=== PATIENT | female | born 1945 | race Caucasian/White ===

== ENCOUNTER → 2017-09-23 | Outpatient (CLI) | payer MEDICARE ==
[~2017-09-23] MED LIST: ROSU5TAB PO; VIT1TABL6 PO
== END | disposition home or self-care (01) ==
LOC: SHCH 10:16
PROVIDERS: ATTEND Internal Medicine Cardiovascular Disease
DX: I48.1 Persistent atrial fibrillation (principal)
CPT/HCPCS: 93306

== ENCOUNTER 2018-10-20 17:41 | Inpatient (IN) | payer MEDICARE ==
[2018-10-20] VITALS (14 sets, daily range): BP systolic 118–209; BP diastolic 49–96
[~2018-10-20] VITALS: Ht 162.6 cm; Wt 73.1 kg
[2018-10-20] MEDS ORDERED: ONDANSETRON HCL 4 MG/2 ML VIAL ONE (17:55)
[2018-10-20] MEDS ORDERED: PHYTONADIONE 10 MG/1 ML AMP ONE (18:27)
[2018-10-20 18:48] LABS: BASOPHILS % (AUTO) 0.5 % (0.0-5.0); EOSINOPHILS % (AUTO) 0.4 % (0.0-8.0); HEMATOCRIT 33.9 % (36-48); LYMPHOCYTES % (AUTO) 10.2 % (21.0-51.0); MEAN CORPUSCULAR HEMOGLOBIN 29.4 pg (27.0-33.0); MEAN CORPUSCULAR HGB CONC 33.2 g/dL (32.0-36.0); MEAN CORPUSCULAR VOLUME 88.5 fL (79-99); MONOCYTES % (AUTO) 6.6 % (3.0-13.0); NEUTROPHILS % (AUTO) 82.3 % (40.0-77.0); PLATELET COUNT (AUTO) 134 K/uL (130-400); RED BLOOD CELL COUNT(AUTO) 3.84 MIL/uL (4.00-5.50); RED CELL DISTRIBUTION WIDTH 14.1 % (11.0-15.5); WHITE BLOOD COUNT (AUTO) 13.6 K/uL (4.8-10.8)
[2018-10-20] MEDS ORDERED: LEVETIRACETAM 500 MG/5 ML SD VIAL IV ONE (18:57)
[2018-10-20 19:02] LABS: INR 1.1 (0.85-1.15); PROTHROMBIN TIME 11.5 SEC (9.6-11.6)
[2018-10-20 19:03] LABS: ALBUMIN 3.8 g/dL (3.5-5.0); BILIRUBIN,TOTAL 0.7 mg/dL (0.2-1.0); TOTAL PROTEIN, SERUM 6.7 g/dL (6.0-8.3)
--- NOTE | 2018-10-20 19:35 | NUR ---
Dr. Oseguera notified Dr. Oseguera notified of patient's current deteriorating neurological condition. vitals signs, and current diagnostic/CT result. Orders received readback and entered into system. See EMR.
[2018-10-20] MEDS ORDERED: MANNITOL 20% 500ML BAG 500 ML IV STA (19:48)
--- NOTE | 2018-10-20 19:50 | NUR ---
Dr. Joo gavin
--- NOTE | 2018-10-20 19:55 | NUR ---
Dr. Ge here to see pt at bedside. Dr. Ge here to see. Pt at bedside. Updated on patient current condition and deteriorating neurologic condition. Orders received and entered into system. Dr. Oseguera placed on phone to speak [email or web address]. Dr. Oseguera spoke personally to [email or web address]. All orders received and entered into system.
[2018-10-20] MEDS ORDERED: NICARDIPINE HCL 100 MG in DEXTROSE 5%-WATER 60 ML IV SCH (20:00)
[2018-10-20] MEDS ORDERED: MANNITOL 25% 50ML VIAL IV SCH (21:00)
--- NOTE | 2018-10-20 22:00 | NUR ---
Dr. Oseguera notification Notified of patient going into afib RVR. Orders received readback and entered into system.
[2018-10-20] MEDS: ONDANSETRON HCL 4 MG/2 ML VIAL IVP PRN (22:08)
[2018-10-20 22:34] LABS: APPEARANCE,URINE Clear (CLEAR); BILIRUBIN,URINE Negative (NEGATIVE); COLOR,URINE Yellow (YELLOW); GLUCOSE, URINE (UA) Negative (NEGATIVE); KETONES,URINE >=80 mg/dL (NEGATIVE); LEUKOCYTE ESTERASE ,URINE Negative (NEGATIVE); NITRATE,URINE Negative (NEGATIVE); OCCULT BLOOD,URINE Negative (NEGATIVE); PH,URINE 7.5 (5.0-8.0); PROTEIN,URINE Negative (NEGATIVE); UROBILINOGEN,URINE 0.2 mg/dL (0.2-1.0)
[2018-10-20] MEDS ORDERED: AMIODARONE HCL 150 MG in DEXTROSE 5%-WATER 100 ML IV SCH (23:15)
[2018-10-20] MEDS ORDERED: AMIODARONE HCL 900 MG in DEXTROSE 5%-WATER 500 ML IV SCH (23:15)
[2018-10-20] MEDS ORDERED: AMIODARONE HCL 900MG/18ML IV ONE (23:19)
[2018-10-20] MEDS ORDERED: AMIODARONE HCL 50 MG/ML 3 ML VIAL ONE (23:20)
[2018-10-20] MEDS ORDERED: DEXTROSE 5%-WATER 100 ML IV ONE (23:21)
[2018-10-20] MEDS ORDERED: DEXTROSE 5%-WATER 500 ML IV ONE (23:22)
[2018-10-21] VITALS (33 sets, daily range): BP systolic 65–155; BP diastolic 29–98
[2018-10-21 03:47] LABS: BASOPHILS % (AUTO) 0.2 % (0.0-5.0); LYMPHOCYTES % (AUTO) 4.2 % (21.0-51.0); MEAN CORPUSCULAR HEMOGLOBIN 30.1 pg (27.0-33.0); MEAN CORPUSCULAR HGB CONC 34.3 g/dL (32.0-36.0); MEAN CORPUSCULAR VOLUME 87.7 fL (79-99); MONOCYTES % (AUTO) 6.9 % (3.0-13.0); NEUTROPHILS % (AUTO) 88.7 % (40.0-77.0); PLATELET COUNT (AUTO) 121 K/uL (130-400); RED BLOOD CELL COUNT(AUTO) 3.42 MIL/uL (4.00-5.50); RED CELL DISTRIBUTION WIDTH 13.6 % (11.0-15.5); WHITE BLOOD COUNT (AUTO) 12.5 K/uL (4.8-10.8)
[2018-10-21] MEDS ORDERED: ACETAMINOPHEN 650 MG SUPPOSITORY RC ONE ×2 (03:58→08:27)
[2018-10-21] MEDS ORDERED: MANNITOL 20% 500ML BAG 500 ML IV SCH (04:00)
--- NOTE | 2018-10-21 04:00 | NUR ---
Dr. Oseguera Notified Dr. Oseguera notified of no serum-osmo result able to get on time to to send out. Orders received to go ahead and give the Mannitol dose scheduled at this time.
[2018-10-21 04:02] LABS: INR 1.05 (0.85-1.15); PARTIAL THROMBOPLASTIN TIME 24.6 SEC (26.3-35.5)
[2018-10-21 04:17] LABS: ALBUMIN 4.1 g/dL (3.5-5.0); BILIRUBIN,TOTAL 0.9 mg/dL (0.2-1.0); MAGNESIUM 1.6 mg/dL (1.80-2.40); POTASSIUM 3.6 mmol/L (3.5-5.1); TOTAL PROTEIN, SERUM 7.7 g/dL (6.0-8.3)
[2018-10-21] MEDS ORDERED: POTASSIUM CHLORIDE 20MEQ/100ML 100 ML IV ONE (04:56)
[2018-10-21] MEDS ORDERED: MAGNESIUM 2GM PREMIX 50ML 50 ML IV ONE (04:56)
[2018-10-21] MEDS: SODIUM CHLORIDE 0.9% 1000ML 1,000 ML IV SCH ×2 (05:13→09:50)
[2018-10-21] MEDS: MANNITOL 25% 50ML VIAL IV SCH ×3 (05:20→21:00)
[2018-10-21] MEDS ORDERED: LIDOCAINE HCL-MPF 1% 2ML VIAL IVP PRN (05:45)
[2018-10-21] MEDS ORDERED: MAGNESIUM 2GM PREMIX 50ML 50 ML IV PRN (05:45)
[2018-10-21] MEDS: LEVETIRACETAM 500 MG in SODIUM CHLORIDE 0.9% 100 ML IV SCH ×2 (07:02→18:40)
--- NOTE | 2018-10-21 08:00 | NUR ---
PT TAKEN TO CT. TOLERATED WELL.
[2018-10-21] MEDS: ONDANSETRON HCL 4 MG/2 ML VIAL IVP PRN (08:32)
--- NOTE | 2018-10-21 10:00 | NUR ---
DR. GUNTER CALLED AND NOTIFIED OF CT RESULTS, PT NAUSEA AND FEVER. NEW ORDERS RECEIVED AND NOTED. PT STARTED ON 3 % SALINE ORDERED.
[2018-10-21] MEDS: SODIUM CHLORIDE 3% 500 ML IV SCH (11:21)
--- NOTE | 2018-10-21 11:30 | NUR ---
Ying HORVATH, REGISTERED PHARMACY TECHNICIAN AT BEDSIDE. PLANO F CARE DISCUSSED WITH AT BEDSIDE. ALL QUESTIONS ANSWERED.
[2018-10-21 12:37] LABS: POTASSIUM 3.7 mmol/L (3.5-5.1)
--- NOTE | 2018-10-21 13:01 | NUR ---
DC PLAN VISITED WITH PATIENT. PATIENT LIVES WITH SPOUSE. INDEPENDENT ABLE TO PERFORM ADL'S. PATIENT HAS NO SERVICES OR DME'S. PATIENT FEELS SAFE TO RETURN HOME. Addendum: 10/21/18 at 1302 by BEHZAD MEJÍA RN CM Amended: Links added.
[2018-10-21] MEDS: ACETAMINOPHEN 650 MG SUPPOSITORY RC PRN ×2 (16:34→23:42)
[2018-10-21 16:55] LABS: POTASSIUM 3.8 mmol/L (3.5-5.1)
[2018-10-21 21:22] LABS: CREATININE 1.1 mg/dL (0.5-1.5); POTASSIUM 3.7 mmol/L (3.5-5.1)
[2018-10-22] VITALS (35 sets, daily range): BP systolic 112–161; BP diastolic 67–100
[2018-10-22 01:33] LABS: CREATININE 1.1 mg/dL (0.5-1.5); POTASSIUM 3.5 mmol/L (3.5-5.1)
[2018-10-22] MEDS: SODIUM CHLORIDE 3% 500 ML IV SCH ×2 (01:54→14:23)
[2018-10-22] MEDS ORDERED: IPRATROPIUM/ALBUTEROL SULFATE 3 ML SOLUTION IH ONE (02:12)
[2018-10-22] MEDS ORDERED: IPRATROPIUM 0.5 MG/2.5 ML INH IH ONE (02:13)
[2018-10-22] MEDS ORDERED: AMIODARONE HCL 900MG/18ML IV ONE (03:49)
[2018-10-22] MEDS ORDERED: SODIUM CHLORIDE 0.9% 500ML 500 ML IV ONE (03:50)
[2018-10-22 04:45] LABS: POTASSIUM 3.5 mmol/L (3.5-5.1)
[2018-10-22] MEDS: MANNITOL 25% 50ML VIAL IV SCH ×3 (05:00→21:00)
--- NOTE | 2018-10-22 05:00 | NUR ---
Sagar KAUR NOTIFIED OF PT INCREASE IN HR TO AFIVB RVR 150-160. ALSO INFORMED OF PT DESATURATION. PT PLACED ON 40% VENTI MASK AND LASIX ORDERED BID. ORDERS CARRIED OUT.
[2018-10-22] MEDS ORDERED: FUROSEMIDE 10 MG/ML 2ML VIAL ONE (05:59)
[2018-10-22] MEDS: FUROSEMIDE 10 MG/ML 2ML VIAL IV SCH ×2 (06:00→19:28)
[2018-10-22] MEDS: IPRATROPIUM 0.5 MG/2.5 ML INH IH PRN ×4 (07:01→23:16)
[2018-10-22] MEDS: LEVETIRACETAM 500 MG in SODIUM CHLORIDE 0.9% 100 ML IV SCH ×2 (07:13→20:35)
--- NOTE | 2018-10-22 08:00 | NUR ---
NEURO: PUPILS EQUAL - STICKS OUT TONGUE - MIDLINE. HOLDS BOTH ARMS UP FOR COUNT OF 5 - DOES NOT RESPONDS TO OTHER AREAS OF NIH SCALE - DROWSY.
[2018-10-22 08:25] LABS: POTASSIUM 3.3 mmol/L (3.5-5.1)
[2018-10-22] MEDS ORDERED: ENOXAPARIN SODIUM 60 MG/0.6 ML SQ SCH (09:00)
[2018-10-22] MEDS: DILTIAZEM 125MG+100 ML NS 125 ML IV PRN ×2 (11:40→19:42)
--- NOTE | 2018-10-22 11:40 | NUR ---
CARDIZEM STARTED AT 15 MG/HR PER MD FOR HR AFIB 130 - 150 - AMINODARONE STOPPED.
[2018-10-22] MEDS: POTASSIUM CHLORIDE 20MEQ/100ML 100 ML IV PRN ×4 (12:15→22:08)
[2018-10-22] MEDS: DIGOXIN 250 MCG/ML 2ML AMP IV SCH ×3 (12:15→22:09)
--- NOTE | 2018-10-22 12:15 | NUR ---
K+ REPLACEMENT - SEE EMAR
[2018-10-22 12:55] LABS: POTASSIUM 3.1 mmol/L (3.5-5.1)
--- NOTE | 2018-10-22 14:08 | NUR ---
DR. LEVIN NOTIFIED OF PT LETHARGY AND SHALLOW RESP IN THE 20'S - SEE ORDERS FOR ABGS AND RT NOTIFIED.
[2018-10-22] MEDS ORDERED: DIGOXIN 250 MCG/ML 2ML AMP IV ONE (14:15)
[2018-10-22 14:23] LABS: ABG BASE EXCESS -2.6 mmol/L (-2.0-3.0); ABG HCO3 19.8 mmol/L (21.0-28.0); ABG OXYGEN SATURATION 93.3 % (95.0-99.0); ABG PCO2 29 mmHg (32-45)
--- NOTE | 2018-10-22 14:25 | NUR ---
NOTIFIED OF ABGS - SEE ORDERS
[2018-10-22] MEDS ORDERED: FUROSEMIDE 10 MG/ML 2ML VIAL IV SCH (14:30)
--- NOTE | 2018-10-22 14:30 | NUR ---
RT NOTIFIED OF BIPAP ORDERS.
--- NOTE | 2018-10-22 15:00 | NUR ---
K+ REPLACEMENT SEE EMAR.
--- NOTE | 2018-10-22 16:30 | NUR ---
MORE ALERT - ABLE TO RESPOND TO QUESTIONS WITH HEAD NOD - WEAK AND FOLLOWS SOME COMMANDS - KNOWS DAUGHTER IN LAW AT [employer].
--- NOTE | 2018-10-22 16:30 | NUR ---
LASIX 20MG IVP NOW PER ORDER FROM DR. APARICIO.
--- NOTE | 2018-10-22 20:00 | NUR ---
ASSESSMENT AWAKE FOLLOWS COMMANDS. REMAINS ON BIPAP. REMAINS ON CARDIZEM DRIP. ASSESSMENT COMPLETED SEE FLOW SHEET. ENCOURAGED TO CALL FOR WANTS OR NEEDS. Addendum: 10/22/18 at 2133 by AMBER GORDON RN RN Amended: Links added.
[2018-10-22 20:34] LABS: POTASSIUM 3.1 mmol/L (3.5-5.1)
[2018-10-23] VITALS (26 sets, daily range): BP systolic 98–127; BP diastolic 51–77
[2018-10-23 02:27] LABS: POTASSIUM 3.2 mmol/L (3.5-5.1)
[2018-10-23 02:28] LABS: CREATININE 0.9 mg/dL (0.5-1.5)
[2018-10-23] MEDS: DIGOXIN 250 MCG/ML 2ML AMP IV SCH ×2 (03:08→08:09)
[2018-10-23] MEDS: POTASSIUM CHLORIDE 20MEQ/100ML 100 ML IV PRN ×4 (03:08→18:31)
[2018-10-23 04:38] LABS: HEMATOCRIT 29.5 % (36-48); MEAN CORPUSCULAR HEMOGLOBIN 29.9 pg (27.0-33.0); MEAN CORPUSCULAR HGB CONC 33.2 g/dL (32.0-36.0); MEAN CORPUSCULAR VOLUME 89.9 fL (79-99); PLATELET COUNT (AUTO) 118 K/uL (130-400); RED BLOOD CELL COUNT(AUTO) 3.28 MIL/uL (4.00-5.50); WHITE BLOOD COUNT (AUTO) 18.2 K/uL (4.8-10.8)
[2018-10-23 04:51] LABS: CREATININE 0.9 mg/dL (0.5-1.5); MAGNESIUM 2.3 mg/dL (1.80-2.40); POTASSIUM 3.7 mmol/L (3.5-5.1)
[2018-10-23] MEDS: FUROSEMIDE 10 MG/ML 2ML VIAL IV SCH ×2 (05:18→18:30)
[2018-10-23] MEDS: LEVETIRACETAM 500 MG in SODIUM CHLORIDE 0.9% 100 ML IV SCH ×2 (06:40→18:55)
[2018-10-23] MEDS: MANNITOL 25% 50ML VIAL IV SCH ×2 (07:35→13:00)
--- NOTE | 2018-10-23 08:00 | NUR ---
ASSESS: NIH = 1 - NOT ABLE TO SEE UPPER LEFT LATERAL PERIPHERY; KNOWS SPOUSE NAME AND PLACE - ORIENTED TO TIME. SLOW RESPONSE TO QUESTIONS AND COMMANDS BUT RESPONSE APPROPRIATE.
[2018-10-23] MEDS: DILTIAZEM 125MG+100 ML NS 125 ML IV PRN (08:10)
[2018-10-23 08:54] LABS: POTASSIUM 3.3 mmol/L (3.5-5.1)
[2018-10-23] MEDS ORDERED: FAMOTIDINE/PF 20 MG/2 ML VIAL IV ONE (10:09)
[2018-10-23] MEDS: FAMOTIDINE/PF 20 MG/2 ML VIAL IV SCH ×2 (10:12→21:28)
[2018-10-23 12:51] LABS: POTASSIUM 3.9 mmol/L (3.5-5.1)
--- NOTE | 2018-10-23 13:00 | NUR ---
HELD PENDING SERUM OSMO RESULTS
--- NOTE | 2018-10-23 14:30 | NUR ---
SEE ORDERS - DR. QUINN WILL SEE PT OUTPATIENT. Addendum: 10/23/18 at 1936 by JUDY HANSEN RN RN WRONG CHART
--- NOTE | 2018-10-23 16:30 | NUR ---
SWALLOW: NO DELAY NOTED IN SWALLOWING SML SIPS H20 - NO COUGHING OR THROAT CLEARING - MD NOTIFIED.
[2018-10-23 16:55] LABS: POTASSIUM 3.7 mmol/L (3.5-5.1)
--- NOTE | 2018-10-23 19:30 | NUR ---
PT WAS ASSESSED AND AT PRESENT PT IS ABLE TO ANSWER QUESTIONS AND NEURO STATUS IS STABLE. SEE DOCUMENTATION.
[2018-10-24] VITALS (25 sets, daily range): BP systolic 112–155; BP diastolic 53–92
[2018-10-24 04:21] LABS: HEMATOCRIT 29.2 % (36-48); MEAN CORPUSCULAR HGB CONC 33.7 g/dL (32.0-36.0); MEAN CORPUSCULAR VOLUME 89.2 fL (79-99); NUCLEATED RED BLOOD CELLS 0.1 % (0.0-0.19); PLATELET COUNT (AUTO) 121 K/uL (130-400); RED BLOOD CELL COUNT(AUTO) 3.28 MIL/uL (4.00-5.50); RED CELL DISTRIBUTION WIDTH 13.7 % (11.0-15.5); WHITE BLOOD COUNT (AUTO) 13.2 K/uL (4.8-10.8)
--- NOTE | 2018-10-24 04:30 | NUR ---
AT NURSE'S STATION ASKING IF PT'S HIP HAS BEEN XRAY'D STATES THAT THE PATIENT DOES COMPLAIN OF DISCOMFORT. BRUISING NOTED TO THE RIGHT HIP AND BACK AREA NOTED AND NOT TENDER TO TOUCH.
[2018-10-24 04:41] LABS: MAGNESIUM 2.6 mg/dL (1.80-2.40); PHOSPHORUS 1.9 mg/dL (2.5-4.9); POTASSIUM 3.5 mmol/L (3.5-5.1)
[2018-10-24 04:46] LABS: INR 1.05 (0.85-1.15); PARTIAL THROMBOPLASTIN TIME 22.6 SEC (26.3-35.5)
[2018-10-24] MEDS: LEVETIRACETAM 500 MG in SODIUM CHLORIDE 0.9% 100 ML IV SCH ×2 (06:08→19:10)
[2018-10-24] MEDS: FUROSEMIDE 10 MG/ML 2ML VIAL IV SCH (06:08)
--- NOTE | 2018-10-24 06:50 | NUR ---
ASSESSMENT Arousable with verbal stimulation. Focuses and follow commands. Denies pain. Responses are appropriate - delayed verbal responses. A-fib on tele - refer to separate documentation. Assessment completed/recorded. Spouse at bedside.
[2018-10-24] MEDS: FAMOTIDINE/PF 20 MG/2 ML VIAL IV SCH ×2 (09:00→21:07)
[2018-10-24] MEDS: METOPROLOL TARTRATE 25 MG TAB PO SCH ×2 (11:24→21:07)
[2018-10-24] MEDS ORDERED: POTASSIUM PHOS 15 mMOL+NS250ML 250 ML IV PRN (13:00)
[2018-10-24] MEDS ORDERED: COMPOUND IV MISC 1 EACH IVSOLN MISC PRN (13:45)
[2018-10-24] MEDS ORDERED: IOHEXOL 350 MG/ML 100ML INFUS..BTL IV ONE (17:48)
--- NOTE | 2018-10-24 18:12 | NUR ---
PT CARE To radiology dept for planned chest CT. Pt monitored - accompanied by this RN.
[2018-10-25] VITALS (20 sets, daily range): BP systolic 117–151; BP diastolic 62–97
--- NOTE | 2018-10-25 03:00 | NUR ---
PT REMAINS AAOX2 AND IS FOLLOWING COMMANDS. HOWEVER PT CONTINUES WITH PERIODS OF SLOW RESPONSIVENESS AND CONFUSION. DURING THIS TIME, PT REMOVED PICC LINE. CATHETER TIP FOUND INTACT ON BED. SITE WITH NO S/S OF BLEEDING OR HEMATOMA. WILL CONT TO MONITOR.
[2018-10-25 04:05] LABS: BASOPHILS % (AUTO) 0.1 % (0.0-5.0); EOSINOPHILS % (AUTO) 0.2 % (0.0-8.0); HEMATOCRIT 28.9 % (36-48); LYMPHOCYTES % (AUTO) 11.8 % (21.0-51.0); MEAN CORPUSCULAR HGB CONC 33.5 g/dL (32.0-36.0); MEAN CORPUSCULAR VOLUME 89.5 fL (79-99); MONOCYTES % (AUTO) 10.5 % (3.0-13.0); NEUTROPHILS % (AUTO) 77.4 % (40.0-77.0); NUCLEATED RED BLOOD CELLS 0.1 % (0.0-0.19); PLATELET COUNT (AUTO) 145 K/uL (130-400); RED BLOOD CELL COUNT(AUTO) 3.23 MIL/uL (4.00-5.50); WHITE BLOOD COUNT (AUTO) 10.4 K/uL (4.8-10.8)
[2018-10-25 04:14] LABS: INR 1.04 (0.85-1.15); PARTIAL THROMBOPLASTIN TIME 23.8 SEC (26.3-35.5); PROTHROMBIN TIME 10.9 SEC (9.6-11.6)
[2018-10-25 04:21] LABS: CREATININE 0.9 mg/dL (0.5-1.5); MAGNESIUM 2.4 mg/dL (1.80-2.40); POTASSIUM 3.4 mmol/L (3.5-5.1)
[2018-10-25] MEDS ORDERED: POTASSIUM CHLORIDE 20 MEQ ERTAB PO PRN (06:00)
[2018-10-25] MEDS ORDERED: POTASSIUM CHLORIDE 10% ELIXIR 20 MEQ/15 ML UDCUP ONE (06:19)
[2018-10-25] MEDS: LEVETIRACETAM 500 MG in SODIUM CHLORIDE 0.9% 100 ML IV SCH ×2 (06:27→20:20)
[2018-10-25] MEDS: FAMOTIDINE/PF 20 MG/2 ML VIAL IV SCH ×2 (08:22→20:14)
[2018-10-25] MEDS: METOPROLOL TARTRATE 25 MG TAB PO SCH ×2 (08:22→20:14)
[2018-10-25] MEDS ORDERED: BETA1TAB18 PO (08:34)
[2018-10-25] MEDS ORDERED: APIX5TAB PO (08:34)
[2018-10-25] MEDS ORDERED: CALC-190 PO (08:34)
[2018-10-25] MEDS ORDERED: MAGN240P PO (08:34)
[2018-10-25] MEDS ORDERED: METO50TA18 PO (08:44)
--- NOTE | 2018-10-25 13:30 | NUR ---
PT WAS TAKEN TO CT SCAN FOR UPDATED CT AND PT HAS BEEN MORE LETHARGIC THIS DAY. DR. LEVIN HAS SPOKEN TO AND UPDATED ON THE RESULTS OF CT'S AND LAB RESULTS.
[2018-10-26] VITALS (24 sets, daily range): BP systolic 125–155; BP diastolic 69–100
[2018-10-26] MEDS: POTASSIUM CHLORIDE 10% ELIXIR 20 MEQ/15 ML UDCUP PO PRN ×2 (04:44→09:16)
[2018-10-26] MEDS: LEVETIRACETAM 500 MG in SODIUM CHLORIDE 0.9% 100 ML IV SCH ×2 (06:24→20:52)
[2018-10-26] MEDS: METOPROLOL TARTRATE 25 MG TAB PO SCH (09:16)
[2018-10-26] MEDS: FAMOTIDINE/PF 20 MG/2 ML VIAL IV SCH ×2 (09:16→21:12)
[2018-10-26] MEDS ORDERED: PHARMACY COMMUNICATION MISC SCH (16:00)
[2018-10-26] MEDS ORDERED: MANNITOL 25% 50ML VIAL IV SCH (17:00)
[2018-10-26] MEDS ORDERED: DEXAMETHASONE SOD PHOSPHATE 4 MG/ML 1ML VIAL IVP ONE (17:20)
[2018-10-26] MEDS ORDERED: DEXAMETHASONE IV SCH (17:45)
[2018-10-26] MEDS ORDERED: SODIUM CHLORIDE 0.9% IV SCH (17:45)
[2018-10-26] MEDS ORDERED: METOPROLOL TARTRATE 25 MG TAB PO SCH (21:00)
[2018-10-26] MEDS: METOPROLOL TARTRATE 50 MG TAB PO SCH (21:12)
[2018-10-27] VITALS (23 sets, daily range): BP systolic 120–152; BP diastolic 58–97
[2018-10-27 03:18] LABS: ABG BASE EXCESS 3.2 mmol/L (-2.0-3.0); ABG HCO3 25.5 mmol/L (21.0-28.0); ABG OXYGEN SATURATION 96.9 % (95.0-99.0); ABG PCO2 32 mmHg (32-45)
[2018-10-27 03:29] LABS: HEMATOCRIT 31.6 % (36-48); MEAN CORPUSCULAR HEMOGLOBIN 29.4 pg (27.0-33.0); MEAN CORPUSCULAR HGB CONC 32.9 g/dL (32.0-36.0); MEAN CORPUSCULAR VOLUME 89.4 fL (79-99); PLATELET COUNT (AUTO) 160 K/uL (130-400); RED BLOOD CELL COUNT(AUTO) 3.53 MIL/uL (4.00-5.50); RED CELL DISTRIBUTION WIDTH 13.9 % (11.0-15.5); WHITE BLOOD COUNT (AUTO) 16.9 K/uL (4.8-10.8)
[2018-10-27 03:51] LABS: BILIRUBIN,TOTAL 1.6 mg/dL (0.2-1.0); CREATININE 0.9 mg/dL (0.5-1.5); PHOSPHORUS 4.1 mg/dL (2.5-4.9); POTASSIUM 3.7 mmol/L (3.5-5.1); TOTAL PROTEIN, SERUM 6.9 g/dL (6.0-8.3)
[2018-10-27] MEDS: METOPROLOL TARTRATE 50 MG TAB PO SCH ×2 (06:25→20:32)
[2018-10-27] MEDS: LEVETIRACETAM 500 MG in SODIUM CHLORIDE 0.9% 100 ML IV SCH ×2 (06:25→17:52)
--- NOTE | 2018-10-27 10:00 | NUR ---
DR. BEACH AT BEDSIDE. PT ASSESSED, AT BEDSIDE. ALL QUESTIONS ANSWERED. PLAN OF CARE DISCUSSED. NEW ORDERS RECEIVED AND NOTED.
--- NOTE | 2018-10-27 10:45 | NUR ---
PT TAKEN FOR REPEAT CT OF HEAD. TOLERATED WELL.
[2018-10-27] MEDS ORDERED: PHARMACY COMMUNICATION MISC SCH (12:45)
--- NOTE | 2018-10-27 14:00 | NUR ---
DR. GUNTER CALLED AND NOTIFIED OF REPEAT CT RESULTS ORDERED. NO DECADRON OR MANNITOL ORDERED PER MD AT THIS TIME.
[2018-10-27] MEDS: MANNITOL 25% 50ML VIAL IV SCH ×2 (14:34→21:12)
[2018-10-27] MEDS: FAMOTIDINE/PF 20 MG/2 ML VIAL IV SCH ×2 (14:34→20:31)
[2018-10-27] MEDS: ACETAMINOPHEN 650 MG SUPPOSITORY RC PRN (14:35)
[2018-10-28] VITALS (24 sets, daily range): BP systolic 113–155; BP diastolic 53–101
[2018-10-28] MEDS: MANNITOL 25% 50ML VIAL IV SCH ×2 (02:38→09:48)
[2018-10-28 03:57] LABS: HEMATOCRIT 31.5 % (36-48); MEAN CORPUSCULAR HEMOGLOBIN 29.6 pg (27.0-33.0); MEAN CORPUSCULAR HGB CONC 33.4 g/dL (32.0-36.0); MEAN CORPUSCULAR VOLUME 88.8 fL (79-99); NUCLEATED RED BLOOD CELLS 0.1 % (0.0-0.19); PLATELET COUNT (AUTO) 163 K/uL (130-400); RED BLOOD CELL COUNT(AUTO) 3.54 MIL/uL (4.00-5.50); RED CELL DISTRIBUTION WIDTH 13.9 % (11.0-15.5)
[2018-10-28 04:10] LABS: INR 1.02 (0.85-1.15); PARTIAL THROMBOPLASTIN TIME 22.1 SEC (26.3-35.5); PROTHROMBIN TIME 10.7 SEC (9.6-11.6)
[2018-10-28 04:15] LABS: CREATININE 0.8 mg/dL (0.5-1.5); MAGNESIUM 1.9 mg/dL (1.80-2.40); PHOSPHORUS 3.5 mg/dL (2.5-4.9); POTASSIUM 3.4 mmol/L (3.5-5.1)
[2018-10-28] MEDS ORDERED: ACETAMINOPHEN 325 MG TAB ONE (08:21)
[2018-10-28] MEDS: POTASSIUM CHLORIDE 10% ELIXIR 20 MEQ/15 ML UDCUP PO PRN (08:24)
[2018-10-28] MEDS ORDERED: ACETAMINOPHEN 325 MG TAB PO PRN (08:30)
[2018-10-28] MEDS: METOPROLOL TARTRATE 50 MG TAB PO SCH ×2 (08:31→20:57)
[2018-10-28] MEDS: FAMOTIDINE/PF 20 MG/2 ML VIAL IV SCH ×2 (08:33→20:57)
[2018-10-28] MEDS: ACETAMINOPHEN 650 MG SUPPOSITORY RC PRN ×2 (08:40→18:16)
[2018-10-28] MEDS: LEVETIRACETAM 500 MG in SODIUM CHLORIDE 0.9% 100 ML IV SCH ×2 (08:40→20:57)
--- NOTE | 2018-10-28 08:52 | NUR ---
PT DROWSY-REFUSES TO DRINK WATER. I WAS ABLE TO GIVE LOPRESSOR CRUSHED WITH APPLESAUCE. ALL OTHER MEDS SHE KEPT LIPS PURSED. SHE IS NOT SPEAKING AND WEAK. NO COMPREHENSIBLE WORDS SPOKEN. AT BEDSIDE. GIVEN PRE-MED TYLENOL SUPP. FOR MANNITOL.
--- NOTE | 2018-10-28 10:42 | NUR ---
DR BEACH HERE TO SEE PATIENT - UPDATES GIVEN. ORDERS PENDING
--- NOTE | 2018-10-28 11:02 | NUR ---
DR GUNTER PAGESuzy
--- NOTE | 2018-10-28 11:58 | NUR ---
DR GUNTER GIVES OK TO START DECADRON
[2018-10-28] MEDS ORDERED: DEXAMETHASONE 10MG/ML 1ML VIAL 10 MG in SODIUM CHLORIDE 0.9% 50 ML IV SCH (13:00)
--- NOTE | 2018-10-28 13:09 | NUR ---
DR HESTER HAS SEEN PATIENT -SPOKE TO DR BEACH- DECGEMRON THERAPY TO BE STARTED
[2018-10-28] MEDS ORDERED: LACTULOSE 20 GM/30 ML UDCUP PO PRN (13:15)
[2018-10-28] MEDS ORDERED: BISACODYL 10 MG SUPP.RECT RC PRN (17:15)
--- NOTE | 2018-10-28 17:16 | NUR ---
PT IS CONSTIPATED- HAS HAD 2 SMEARS (PASTY FECES) - I NOTED HER TO HAVE STOOL IN RECTUM WHEN I GAVE HER A TYLENOL SUPPOSITORY THIS AM. DR HESTER NOTIFIED- WILL GIVE A DULCOLAX SUPPOSITORY PRN PER ORDERS
--- NOTE | 2018-10-28 18:17 | NUR ---
PT FEELS PT IS UNCOMFORTABLE/HEADACHE - "SHE KEEPS PUTTING HER ARM ON HER FOREHEAD" . SHE STILL IS NOT TAKING ANYTHING PO . I GAVE HER A TYLENOL SUPP FOR HEADACHE
--- NOTE | 2018-10-28 19:03 | NUR ---
HAND OFF REPORT GIVEN TO ANA PFEIFFER
--- NOTE | 2018-10-28 19:04 | NUR ---
RECEIVED BEDSIDE REPORT PATIENT APPEARS COMFORTABLE. NO S/S OF PAIN OR DISCOMFORT. APHASIC. DOES NOT MAKE ATTEMPTS AT COMMUNICATION. DOES NOT FOLLOW COMMANDS. MOVES ALL 4 EXTREMITIES. FOCUSES WITH EYES WHEN SPOKEN TO, BUT DOES NOT ANSWER QUESTIONS ASKED. SPOUSE AND FAMILY VISITORS AT BEDSIDE. INSTRUCTED ON PLAN OF CARE & ON ASPIRATION PRECAUTIONS. SPOUSE VERBALIZED UNDERSTANDING.
--- NOTE | 2018-10-28 20:34 | NUR ---
CALM, COMFORTABLE, APHASIC, UNLABORED RESPIRATIONS. NO APPARENT DISTRESS. Addendum: 10/28/18 at 2216 by ANA WOOD RN RN Amended: Links added.
[2018-10-28] MEDS: DEXAMETHASONE SOD PHOSPHATE 4 MG/ML 1ML VIAL IVP SCH (20:57)
--- NOTE | 2018-10-28 21:25 | NUR ---
METOPROLOL CHANGED TO IV ATTEMPTED TO GIVE METOPROLOL 100MG PO CRUSHED & MIXED WITH APPLESAUCE. PATIENT NOT FOLLOWING COMMANDS, NOT SWALLOWING ANYTHING JUST POCKETS IT IN HER MOUTH. ORAL CARE PROVIDED. NOTIFIED DR DIAZ. METOPROLOL CHANGED TO 5MG IV Q6HR.
[2018-10-28] MEDS ORDERED: METOPROLOL TARTRATE 1 MG/ML 5ML VIAL IV PRN (21:30)
[2018-10-29] VITALS (25 sets, daily range): BP systolic 106–149; BP diastolic 60–97
[2018-10-29] MEDS: DEXAMETHASONE SOD PHOSPHATE 4 MG/ML 1ML VIAL IVP SCH ×4 (03:13→20:20)
[2018-10-29] MEDS: METOPROLOL TARTRATE 1 MG/ML 5ML VIAL IV SCH ×2 (03:13→08:26)
[2018-10-29] MEDS: LEVETIRACETAM 500 MG in SODIUM CHLORIDE 0.9% 100 ML IV SCH ×2 (06:12→18:01)
--- NOTE | 2018-10-29 07:48 | NUR ---
PT APPEARS DEHYDRATED AND MALNOURISHED. SHE IS NOT EATING OR DRINKING. DOES NOT FOLLOW ANY COMMANDS- APHASIC AND NOT SPEAKING. MOVES IN BED /MOVES ALL EXTREMITIES. CALM. PLAN OF CARE DISCUSSED WITH PT AT BEDSIDE. PT OFFERS EYE CONTACT ONLY. FLAT AFFECT. SKIN TENTING DELAYED
[2018-10-29] MEDS: FAMOTIDINE/PF 20 MG/2 ML VIAL IV SCH ×2 (08:26→20:21)
--- NOTE | 2018-10-29 09:11 | NUR ---
DR HESTER NOTIFIED WITH FINDINGS OF DEHYDRATION/MALNUTRITION/CONSTIPATION- ORDERS FOR NG TUBE/TUBE FEEDINGS/TAP WATER ENEMA RECEIVED. PT AWARE
--- NOTE | 2018-10-29 09:30 | NUR ---
NG TUBE 14 CAMEROONIAN INSERTED- POSITION CHECKED WITH AIR BOLUS. IV TO RT WRIST WITH 18 GAUGE CATH.
[2018-10-29 09:39] LABS: BASOPHILS % (AUTO) 0.3 % (0.0-5.0); EOSINOPHILS % (AUTO) 0.1 % (0.0-8.0); LYMPHOCYTES % (AUTO) 8.5 % (21.0-51.0); MEAN CORPUSCULAR HEMOGLOBIN 29.4 pg (27.0-33.0); MEAN CORPUSCULAR HGB CONC 32.9 g/dL (32.0-36.0); MEAN CORPUSCULAR VOLUME 89.2 fL (79-99); MONOCYTES % (AUTO) 8.7 % (3.0-13.0); NEUTROPHILS % (AUTO) 82.4 % (40.0-77.0); NUCLEATED RED BLOOD CELLS 0.1 % (0.0-0.19); PLATELET COUNT (AUTO) 204 K/uL (130-400); RED BLOOD CELL COUNT(AUTO) 3.69 MIL/uL (4.00-5.50); RED CELL DISTRIBUTION WIDTH 13.9 % (11.0-15.5); WHITE BLOOD COUNT (AUTO) 14.5 K/uL (4.8-10.8)
[2018-10-29 09:49] LABS: CREATININE 0.8 mg/dL (0.5-1.5); POTASSIUM 3.8 mmol/L (3.5-5.1)
[2018-10-29] MEDS: LACTATED RINGERS 1000ML 1,000 ML IV SCH ×2 (10:22→23:44)
--- NOTE | 2018-10-29 12:47 | NUR ---
TAP WATER ENEMA PERFORMED-POOR RESULTS-PT DOES NOT RETAIN WATER. MODERATE AMT OF STOOL GRAINS EMPTIED. RECTUM HAS LARGE AMT OF PASTY AND THICK STOOL. UNABLE TO DISIMPACT. LACTULOSE PER NG GIVEN ORDERED .
--- NOTE | 2018-10-29 13:20 | NUR ---
DR HESTER MADE ROUNDS -GIVEN UPDATE . SPOKE TO PT
[2018-10-29] MEDS: METOPROLOL TARTRATE 50 MG TAB NG SCH ×2 (13:44→21:17)
--- NOTE | 2018-10-29 16:15 | NUR ---
NEURO STATUS UNCHANGED- WILL ONLY SAY A FEW WORDS IF STIMULATED SUCH "OW" "HI"- WILL OFFER EYE CONTACT AND SMILE OCCASIONALLY. MOVES ALL EXTREMITIES AT RANDOM. WILL NOT FOLLOW COMMANDS OR DIRECTION. ORAL CARE, HILDA CARE,SKIN CARE GIVEN. HAS BEEN REPOSITIONED FREQUENTLY MOSTLY TO HER RT SIDE WHICH IS POSITION OF COMFORT. NOW HAS HAD RESULTS WITH LACTULOSE AND ENAMA- LARGE AMT OF LOOSE STOOL . TUBE FEEDINGS HAVE BEEN STARTED.
--- NOTE | 2018-10-29 19:12 | NUR ---
HAND OFF REPORT GIVEN TO EGRMAIN PFEIFFER
--- NOTE | 2018-10-29 19:50 | NUR ---
PATIENT AWAKE. PATIENT WILL FOCUS BUT NOT FOLLOW VISUALLY. APHASIC. ASSESSMENT COMPLETED. WILL MOVE UPPER EXTREMITIES PURPOSEFULLY TO RAISE ABOVE HEAD FOR COMFORT BUT DOES NOT FOLLOW COMMANDS. PLAN OF CARE DISCUSSED WITH SPOUSE, DAUGHTER, AND GRANDDAUGHTER. LR INFUSING TO RIGHT PIV. NG WITH FEEDING. REPOSITIONED AND WEDGE PILLOW PLACED. NO ACUTE SIGNS OR SYMPTOMS OF DISTRESS NOTED. FAMILY AT THE BEDSIDE.
[2018-10-30] VITALS (25 sets, daily range): BP systolic 110–141; BP diastolic 62–91
[2018-10-30] MEDS: DEXAMETHASONE SOD PHOSPHATE 4 MG/ML 1ML VIAL IVP SCH ×4 (02:33→19:45)
[2018-10-30 03:47] LABS: BASOPHILS % (AUTO) 0.1 % (0.0-5.0); HEMATOCRIT 32.5 % (36-48); LYMPHOCYTES % (AUTO) 7.8 % (21.0-51.0); MEAN CORPUSCULAR HEMOGLOBIN 29.5 pg (27.0-33.0); MEAN CORPUSCULAR HGB CONC 33.1 g/dL (32.0-36.0); MEAN CORPUSCULAR VOLUME 89.1 fL (79-99); MONOCYTES % (AUTO) 10.5 % (3.0-13.0); NEUTROPHILS % (AUTO) 81.6 % (40.0-77.0); PLATELET COUNT (AUTO) 202 K/uL (130-400); RED BLOOD CELL COUNT(AUTO) 3.65 MIL/uL (4.00-5.50); RED CELL DISTRIBUTION WIDTH 14.1 % (11.0-15.5); WHITE BLOOD COUNT (AUTO) 18.7 K/uL (4.8-10.8)
[2018-10-30 04:04] LABS: CREATININE 0.9 mg/dL (0.5-1.5); POTASSIUM 3.6 mmol/L (3.5-5.1)
[2018-10-30] MEDS: LEVETIRACETAM 500 MG in SODIUM CHLORIDE 0.9% 100 ML IV SCH ×2 (06:03→19:29)
[2018-10-30] MEDS: METOPROLOL TARTRATE 50 MG TAB NG SCH ×3 (06:03→19:45)
--- NOTE | 2018-10-30 07:50 | NUR ---
PT STATUS UNCHANGED-STILL APHASIC. MOVES ALL EXTREMITIES . NOT PERFORMING SIMPLE COMMANDS. FLAT AFFECT.
[2018-10-30] MEDS: FAMOTIDINE/PF 20 MG/2 ML VIAL IV SCH ×2 (09:45→19:45)
--- NOTE | 2018-10-30 11:03 | NUR ---
RD Notification - Tube Feeding recommendations Tube Feeding Recommendations: Jevity 1.5 Goal rate:50mL/hr 1200mL/1800kcal/77gm protein/912mL free H2O Flush: 180 Q6hrs Recommendations placed in patient chart. RN notified. Patient LBM: 10/29/18. Patient monitored labs: BUN 37, Glu 174, Alb 3.0. RD to continue to monitor. Please notify RD as nutritional concerns arise. Thank you. Addendum: 10/30/18 at [address] Amended: Links added.
--- NOTE | 2018-10-30 11:38 | NUR ---
CELESTINA HORVATH SHIRT MARKER MADE ROUNDS- I INFORMED HIM OF FEVERS AND THAT OLIVA HAS FOUL SMELLING URINE - OLIVA CATH TO BE DC'D
[2018-10-30 11:58] LABS: APPEARANCE,URINE TURBID (CLEAR); BILIRUBIN,URINE SMALL (NEGATIVE); COLOR,URINE YELLOW (YELLOW); GLUCOSE, URINE (UA) NEGATIVE (NEGATIVE); KETONES,URINE NEGATIVE (NEGATIVE); LEUKOCYTE ESTERASE ,URINE SMALL (NEGATIVE); NITRATE,URINE NEGATIVE (NEGATIVE); OCCULT BLOOD,URINE LARGE (NEGATIVE); PROTEIN,URINE TRACE mg/dL (NEGATIVE)
[2018-10-30] MEDS: LACTATED RINGERS 1000ML 1,000 ML IV SCH (12:16)
[2018-10-30 12:44] LABS: BACTERIA,URINE Many /HPF (None Seen)
[2018-10-30 12:48] LABS: SQUAMOUS EPITHELIAL CELL,UR 0-2 /HPF (0-2)
--- NOTE | 2018-10-30 13:23 | NUR ---
DR HESTER NOTIFIED- DR BEACH HAD CALLED ME AND ASKED ME TO TALK TO HIM ABOUT REPEATING A CT SCAN TODAY- DR HESTER AGREED AND CT BRAIN WITHOUT ORDERED.
--- NOTE | 2018-10-30 15:53 | NUR ---
DR UGNTER NOTIFIED WITH CURRENT CT BRAIN RESULTS- HE WILL COME TO SEE PATIENT TODAY. NO NEW ORDERS.
--- NOTE | 2018-10-30 18:23 | NUR ---
DR GUNTER HERE -REVIEWED CT SCAN AND SPOKE TO IN ROOM . Addendum: 10/30/18 at 1838 by ANITA KELLEY RN RN NO SURGICAL INTERVENTIONS AT THIS TIME- RECOMMENDS PEG INSERTION AND REPEAT CT SCAN ON WEDNESDAY
--- NOTE | 2018-10-30 19:28 | NUR ---
HAND OFF REPORT GIVEN TO ANA PFEIFFER
--- NOTE | 2018-10-30 19:33 | NUR ---
ASSUMED CARE AWAKE, LETHARGIC, APHASIC. NGTUBE PLACEMENT VERIFIED. TOLERATING FEEDING AT 35ML/HR WITH NO RESIDUALS. NO S/S OF PAIN. BEDSIDE MONITORING AFIB HR 90. SPOUSE AT BEDSIDE. INSTRUCTED ON PLAN OF CARE.
[2018-10-31] VITALS (23 sets, daily range): BP systolic 119–152; BP diastolic 61–95
--- NOTE | 2018-10-31 | NUR ---
ASSESSMENT RESTING, NO SIGNS OF DISTRESS, APPEARS CALM. UNLABORED RESPIRATIONS ON ROOM AIR. REPOSITIONING Q2HR FOR COMFORT. TOLERATING NGT FEEDING. BMX1. CHANGED DIAPER & HILDA CARE PROVIDED. SPOUSE AT BEDSIDE.
[2018-10-31] MEDS: LACTATED RINGERS 1000ML 1,000 ML IV SCH (01:47)
[2018-10-31] MEDS: DEXAMETHASONE SOD PHOSPHATE 4 MG/ML 1ML VIAL IVP SCH ×4 (01:47→21:10)
[2018-10-31 03:35] LABS: BASOPHILS % (AUTO) 0.1 % (0.0-5.0); EOSINOPHILS % (AUTO) 0.1 % (0.0-8.0); HEMATOCRIT 29.2 % (36-48); LYMPHOCYTES % (AUTO) 5.2 % (21.0-51.0); MEAN CORPUSCULAR HEMOGLOBIN 29.4 pg (27.0-33.0); MEAN CORPUSCULAR HGB CONC 32.9 g/dL (32.0-36.0); MEAN CORPUSCULAR VOLUME 89.2 fL (79-99); MONOCYTES % (AUTO) 6.9 % (3.0-13.0); NEUTROPHILS % (AUTO) 87.7 % (40.0-77.0); NUCLEATED RED BLOOD CELLS 0.1 % (0.0-0.19); PLATELET COUNT (AUTO) 183 K/uL (130-400); RED BLOOD CELL COUNT(AUTO) 3.27 MIL/uL (4.00-5.50); RED CELL DISTRIBUTION WIDTH 14.3 % (11.0-15.5); WHITE BLOOD COUNT (AUTO) 22.2 K/uL (4.8-10.8)
[2018-10-31 03:46] LABS: CREATININE 0.8 mg/dL (0.5-1.5); POTASSIUM 3.6 mmol/L (3.5-5.1)
[2018-10-31] MEDS: POTASSIUM CHLORIDE 10% ELIXIR 20 MEQ/15 ML UDCUP PO PRN ×2 (04:32→13:23)
[2018-10-31] MEDS: METOPROLOL TARTRATE 50 MG TAB NG SCH ×3 (04:32→21:10)
[2018-10-31] MEDS: LEVETIRACETAM 500 MG in SODIUM CHLORIDE 0.9% 100 ML IV SCH ×2 (07:14→18:07)
--- NOTE | 2018-10-31 07:16 | NUR ---
ENDORSED CARE TO KENTRELL SANTANA.
--- NOTE | 2018-10-31 07:30 | NUR ---
DR. BRADFORD IN TO SEE PT. PLAN OF CARE DISCUSSED. NEW ORDERS RECEIVED AND NOTED.
[2018-10-31] MEDS: FAMOTIDINE/PF 20 MG/2 ML VIAL IV SCH ×2 (09:16→21:10)
--- NOTE | 2018-10-31 10:00 | NUR ---
DR. BEACH AT BEDSIDE. PLAN OF CARE DISCUSSED WITH WELL LAST CT RESULTS. MD DISCUSSED DNR STATUS WITH PT'S . HE STATED NEED TIME TO THINK ABOUT IT AND NEEDS TO DISCUSS WITH REST OF FAMILY. ALL QUESTIONS ANSWERED.
[2018-10-31] MEDS: ZOSYN 3.375GM+NS 50ML 50 ML IV SCH ×2 (13:23→21:10)
--- NOTE | 2018-10-31 20:00 | NUR ---
oral care provided. gi residual checked, no residual noted. continue feeding at 50 ml hr.
[2018-10-31] MEDS: IPRATROPIUM 0.5 MG/2.5 ML INH IH PRN (20:57)
[2018-11-01] VITALS (24 sets, daily range): BP systolic 93–129; BP diastolic 40–89
--- NOTE | 2018-11-01 | NUR ---
pt continues to tolerate feeding well. no gi residual noted, flushed ng tube with 160 ml h2o
[2018-11-01] MEDS: DEXAMETHASONE SOD PHOSPHATE 4 MG/ML 1ML VIAL IVP SCH ×4 (02:25→20:50)
[2018-11-01 04:08] LABS: HEMATOCRIT 31.6 % (36-48); MEAN CORPUSCULAR HEMOGLOBIN 30.3 pg (27.0-33.0); MEAN CORPUSCULAR HGB CONC 33.9 g/dL (32.0-36.0); MEAN CORPUSCULAR VOLUME 89.2 fL (79-99); PLATELET COUNT (AUTO) 192 K/uL (130-400); RED BLOOD CELL COUNT(AUTO) 3.54 MIL/uL (4.00-5.50); RED CELL DISTRIBUTION WIDTH 14.4 % (11.0-15.5); WHITE BLOOD COUNT (AUTO) 27.5 K/uL (4.8-10.8)
[2018-11-01 04:14] LABS: CREATININE 0.8 mg/dL (0.5-1.5); POTASSIUM 4.1 mmol/L (3.5-5.1)
--- NOTE | 2018-11-01 04:35 | NUR ---
ng tube position checked and gi residual checked, no residual noted. continue feeding as ordered.
[2018-11-01] MEDS: ZOSYN 3.375GM+NS 50ML 50 ML IV SCH ×3 (05:01→20:45)
--- NOTE | 2018-11-01 08:00 | NUR ---
NEURO: OPENS EYES - LOOKS AT PERSON SPEAKING TO HERE W BLANK GLARE - NO FACIAL EXPRESSION OR LOOK OF RECOGNITION - DOES NOT MOVE EXTREMITIES TO COMMAND AND ONLY MOVES WEAKLY. NO DISTRESS.
[2018-11-01] MEDS: METOPROLOL TARTRATE 50 MG TAB NG SCH ×3 (08:02→22:20)
[2018-11-01] MEDS: FAMOTIDINE/PF 20 MG/2 ML VIAL IV SCH ×2 (08:02→20:45)
[2018-11-01] MEDS: LEVETIRACETAM 500 MG in SODIUM CHLORIDE 0.9% 100 ML IV SCH ×2 (08:02→18:32)
--- NOTE | 2018-11-01 09:30 | NUR ---
DR. BEACH SPOKE TO - DISCUSSED OPTION FOR DNR AND HE REFUSED. DISCUSSED POSSIBILITY OF BLEEDING IN BRAIN CAUSING MORE SHIFT, IT IS POSSIBLE SHE WILL NEED INTUBATION AND SPOUSE IN NOT READY TO DISCUSS THAT AT THIS TIME.
--- NOTE | 2018-11-01 14:15 | NUR ---
BM: EACH TIME DIAPER IS CHANGED, THERE IS SMEAR OF BM AT ANUS BUT NOT PASSING - MD NOTIFIED - SEE ORDERS.
--- NOTE | 2018-11-01 15:00 | NUR ---
BM: SUCCESSFUL FLEETS ENEMA WITH GOOD BM AND NOTE PT PUSHING BM.
--- NOTE | 2018-11-01 19:30 | NUR ---
ASSESSMENT PT RESTING QUIETLY IN BED WITH EYES CLOSED. PT'S SISTER AND AT BEDSIDE. A-FIB/FLUTTER, ROOM AIR. JEVITY FEEDING INFUSING WITHOUT DIFFICULTY INTO RIGHT NARE NGT. PT OPENS EYES TO TACTILE STIMULATION, DOES NOT TRACK, DOES NOT RESPOND VERBALLY. WHITE BOARD UP DATED, CALLBELL WITHIN REACH, QUESTIONS ASKED AND ANSWERED. ASSESSMENT COMPLETED, SEE FLOW SHEET.
[2018-11-02] VITALS (23 sets, daily range): BP systolic 98–126; BP diastolic 54–76
--- NOTE | 2018-11-02 | NUR ---
ASSESSMENT PT RESTING QUIETLY IN BED WITH EYES CLOSED. PT OPENS EYES TO TACTILE STIMULATION, DOES NOT TRACK, DOES NOT RESPOND VERBALLY, DOES NOT FOLLOW COMMANDS. PT'S AT BEDSIDE. A-FIB/FLUTTER, ROOM AIR. JEVITY FEEDING STOPPED FOR PENDING CT IN MORNING. RIGHT NARE NGT CLAMPED. CALLBELL WITHIN REACH, QUESTIONS ASKED AND ANSWERED. ASSESSMENT COMPLETED, SEE FLOW SHEET.
--- NOTE | 2018-11-02 01:30 | NUR ---
radiology clarified with radiology re:pending ct at 0600, spoke with darshana
[2018-11-02] MEDS: DEXAMETHASONE SOD PHOSPHATE 4 MG/ML 1ML VIAL IVP SCH ×2 (02:08→09:30)
--- NOTE | 2018-11-02 03:06 | NUR ---
ASSESSMENT PT RESTING QUIETLY IN BED, EYES CLOSED. PT OPENS EYES TO TACTILE STIMULATION, DOES NOT TRACK, DOES NOT RESPOND VERBALLY, DOES NOT FOLLOW COMMANDS. PT'S AT BEDSIDE. A-FIB/FLUTTER, ROOM AIR. JEVITY FEEDING STOPPED FOR PENDING CT IN MORNING. RIGHT NARE NGT CLAMPED. CALLBELL WITHIN REACH. ASSESSMENT COMPLETED, SEE FLOW SHEET.
--- NOTE | 2018-11-02 05:10 | NUR ---
RADIOLOGY SPOKE WITH SLICK FROM RADIOLOGY RE: PENDING CT
[2018-11-02] MEDS: ZOSYN 3.375GM+NS 50ML 50 ML IV SCH ×3 (05:12→20:52)
--- NOTE | 2018-11-02 05:45 | NUR ---
RADIOLOGY ATTEMPTED TO CALL RADIOLOGY RE: CT, NO ANSWER AT PRESENT
--- NOTE | 2018-11-02 06:08 | NUR ---
RADIOLOGY PT TAKEN TO RADIOLOGY FOR HEAD CT, MONITOR ATTACHED, PT TAKEN TO RADIOLOGY VIA BED
--- NOTE | 2018-11-02 06:27 | NUR ---
PT RETURNED TO ROOM VIA BED, CONNECTED TO MONITOR, IV'S AND FEEDING. TOLERATED WITHOUT DIFFICULTY. NO DISTRESS NOTED
[2018-11-02] MEDS: METOPROLOL TARTRATE 50 MG TAB NG SCH ×3 (06:42→22:19)
[2018-11-02] MEDS: LEVETIRACETAM 500 MG in SODIUM CHLORIDE 0.9% 100 ML IV SCH ×2 (06:43→18:33)
--- NOTE | 2018-11-02 07:39 | NUR ---
REPORT REPORT GIVEN TO MORGAN PFEIFFER
[2018-11-02] MEDS: FAMOTIDINE/PF 20 MG/2 ML VIAL IV SCH ×2 (09:30→20:52)
--- NOTE | 2018-11-02 09:40 | NUR ---
Dr Dean/ Emotional Support Sw met with pt's . met with Dr Mehta this am and states things are looking worse for pt. states they discussed Dr Dean consult and he is agreeable to this. states he wants to meet with Dr Rivera for second opinion, but knows he is not going to get any different news. states he needs more questions answered to be make decisions. Sw educated him on Dr Dean and his role on case. agreeable and will let me know about meeting with Dr dean today or tomorrow.
[2018-11-02] MEDS ORDERED: SODIUM CHLORIDE 3% 500 ML SIVP SCH (12:00)
--- NOTE | 2018-11-02 13:02 | NUR ---
Dr York will meet with family at 4 today. and sister to be present
--- NOTE | 2018-11-02 13:51 | NUR ---
Nutrition Follow-up: Hospice consult ordered. Pt. on TF with Jevity 1.5@50ml/hr with 180ml free water flushes every 6 hrs. Pt. tolerating TF with no residuals noted. Labs reviewed(Alb 3.0). LBM: 11/01/18. SR-13, edematous. Recommendations: 1) Continue current TF and water flushes. 2) Continue to monitor pt's nutritional status and TF tolerance. 3) Consult RD if additional nutrition concerns arise. Addendum: 11/02/18 at [address] Amended: Links added.
--- NOTE | 2018-11-02 18:12 | NUR ---
DNR/DNI Sw present when Dr York met with family. Dr York discussed condition and all options. mentioned that she had postponed the PEG tube till Wednesday. Dr York explained the pro and cons of placement and waiting till Wednesday. He encouraged not to wait if PEG tube was wanted. Dr York stressed that under no circumstances did he recommend CPR or intubation for this pt, family was agreeable. Family requested to meet Dr York tomorrow at noon to let him know of their decision. Dr York signed DNR/DNI form and signed with Mitzi, ICU supervisor instrument maintenance
[2018-11-03] VITALS (17 sets, daily range): BP systolic 100–140; BP diastolic 53–87
[2018-11-03 03:57] LABS: CREATININE 0.7 mg/dL (0.5-1.5); POTASSIUM 4.1 mmol/L (3.5-5.1)
[2018-11-03] MEDS: ZOSYN 3.375GM+NS 50ML 50 ML IV SCH ×2 (04:37→12:35)
[2018-11-03] MEDS: METOPROLOL TARTRATE 50 MG TAB NG SCH (05:38)
[2018-11-03] MEDS: LEVETIRACETAM 500 MG in SODIUM CHLORIDE 0.9% 100 ML IV SCH (06:16)
[2018-11-03] MEDS: SODIUM CHLORIDE 3% 500 ML IV SCH (06:19)
[2018-11-03] MEDS: FAMOTIDINE/PF 20 MG/2 ML VIAL IV SCH (09:56)
[2018-11-03] MEDS ORDERED: LORAZEPAM 2 MG/ML 1 ML VIAL IVP PRN ×2 (13:00→13:15)
[2018-11-03] MEDS ORDERED: MORPHINE SULFATE 4 MG/1ML SYG IV PRN (13:00)
[2018-11-03] MEDS ORDERED: MORPHINE SULFATE 2 MG/ML 1ML SYG IVP PRN (13:15)
--- NOTE | 2018-11-03 13:44 | NUR ---
COMFORT MEASURES ONLY SW present when Dr York met with family and Dr Leatha Renner, pt's PCP. Family has decided to stop all treatment and let pt be natural and see how she does in the next 24/48 hours. IF pt begins to decline rapidly, [facility] - (inpt hospice) referral will be made. During this time family will work on placement at hospice house vs private residential vs home. Family has selected [facility] and will be working with [facility] to make arrangements for plan B. signed OOHDNR and original given to him and copies placed in chart. Consents signed for [facility] and referral was made. Gayla here to meet with and start working on plan B. Compliance Manager called and informed of pt and order to moved to medical floor with COMFORT MEASURES. Mitzi, ICU leak gang supervisor, Vipin Nurse and CMD and CM aware of plan.
[2018-11-03] MEDS: MORPHINE SULFATE 2 MG/ML 1ML SYG IVP PRN (14:08)
--- NOTE | 2018-11-03 14:43 | NUR ---
JOSE Shukla met with and paperwork was completed. leaning towards private care homes. Gayla assisting with looking for home that will allow him to stay with pt. Gayla will update us on plan as available
[2018-11-03] MEDS: ACETAMINOPHEN 650 MG SUPPOSITORY RC PRN (16:33)
--- NOTE | 2018-11-03 17:45 | NUR ---
Report called to Juan PFEIFFER. Patient transferred to room 419 via bed.
--- NOTE | 2018-11-03 17:50 | NUR ---
RECEIVED PT FROM ICU FAMILY AT BEDSIDE, PATIENT WITH EYES CLOSED, NO DISTRESS NOTED, NOR FACIAL GRIMACING.
[2018-11-04 08:00] VITALS: BP 113/72
--- NOTE | 2018-11-04 08:30 | NUR ---
NOTE ASLEEP, OPENS EYES SPONTANEOUSLY AND STARES AT AND AT NURSES WHEN WE SPEAK TO HER BUT THERE IS NO RESPONSE TO OUR COMMANDS. DOES NOT BLINK EYES, CLOSE THEM AND ALL EXTREMITIES ARE FLACCID. S/P EPIDURAL AND SUBARACHNOID HEMORRHAGE DUES TO FALL AT HOME AND BEING ON BLOOD THINNERS SHE SUFFERED THE BLEED THAT CAUSED HER TO BE THIS WAY. REFUSED TO PUT A PEG BECAUSE THOSE WERE NOT HER WISHES AND HE IS GRANTING HER WISHES SO SHE WILL BE COMFORT MEASURES ONLY. VS STABLE, NO FEVER. BBS CLEAR TO ALL LOBES AND WITH HEART SOUNDS WITH RAPID HEART RATE IN THE 150'S IRREGULAR. SHE DOES HAVE H/O AFIB AND WAS RUNNING A-FIB UP UNTIL TELEMETRY MONITORING WAS DC'D. WILL MEDICATE PATIENT NEED FOR RESTLESSNESS SOB OR NOTICEABLE PAIN.
--- NOTE | 2018-11-04 09:53 | NUR ---
F/u visit Sw visited with and pt. Pt awake, eyes open, appears comfortable. asking to see Dr York. Dr York to round about 10. states he spoke to Nadia at [facility][1] and she may be able to assist with room and allow him to stay with pt. He will meet with her later today.
--- NOTE | 2018-11-04 10:00 | NUR ---
note DR MESSER STOPPED BY AND SPOKE TO PATIENT'S AND HOSPICE WAS DISCUSSED AND THEY ARE DECIDING TO GO THROUGH WITH IT. IS GOING TO GO CHECK OUT [facility] AND MAKE DECISION. Jose JOHANSEN PSYCHIATRIC SOCIAL WORKER HAS MADE ROUNDS AND SHE WILL WRITE ORDER TO DC WHEN ARRANGEMENTS FOR HOSPICE ARE MADE.
--- NOTE | 2018-11-04 11:56 | NUR ---
DR MESSER F/U - DCP Sw present when Dr Messer rounded on pt. and family discussed dcp. Per Dr Messer pt can dc today or tomorrow if arrangements made for placement with 24/7 care. to tour a few facilities and decide on one. wanting private senior care that will allow him to stay with pt at night. Pt to visit at [facility] who are agreeable to working with . Pt will need ambulance transport when decision made. OOHDNR completed and on the chart.
[2018-11-04 12:00] VITALS: BP 117/65
[2018-11-04 16:00] VITALS: BP 113/69
--- NOTE | 2018-11-04 16:11 | NUR ---
DCP : [facility] WITH [facility] DC WEDNESDAY Edna recd call from Main at [facility]. has decided on [facility] (private nursing home) but there will be delay in discharge because DME has no hospital beds. Hospital bed will be available Wednesday and DME should be delivered to [facility] tomorrow. Nurse to call report to [facility] [phone]. [facility] to update nurse with DME delivery. Nurses Darlene and Tavo update on delay and dcp for tomorrow once DME delivered. Edna spoke to who had questions for Dr York. Dr York informed and called to answer questions. DCP to move forward as planned.
--- NOTE | 2018-11-04 16:16 | NUR ---
AYSHA AT [facility] [phone] SHINE at [place] [phone] if information needed
--- NOTE | 2018-11-04 16:39 | NUR ---
ROUNDS PATIENT RESTING IN BED WITH OU CLOSED. EASILY AROUSED. DOES NOT VOICE NEEDS OR FOLLOW COMMANDS. NO FACIAL GRIMACING NOTED. RESP EVEN AND UNLABORED. NO SOB NOTED. VITALS STABLE. AFEBRILE. TOTAL CARE RENDERED Q2H AND PRN. REPOSITIONED FOR COMFORT Q2H AND NEEDED. FAMILY AT BEDSIDE. CALL LIGHT WITHIN REACH. WILL CONTINUE TO BE OBSERVED. Addendum: 11/04/18 at 1652 by DESEAN ALEXANDRA RN RN Amended: Links added.
[2018-11-04 19:19] VITALS: BP 127/67
[2018-11-04 23:14] VITALS: BP 113/70
[2018-11-05 03:34] VITALS: BP 124/65
[2018-11-05 08:00] VITALS: BP 129/80
--- NOTE | 2018-11-05 08:30 | NUR ---
Report given to Deloris Jensen, nurse at [facility]. All questions answered. Spouse at bedside aware. No questions or concerns voiced. Total care rendered q2h and PRN. Vitals stable. Afebrile. Repositioned for comfort. Call light within reach. Will continue to be observed. Addendum: 11/05/18 at 1526 by DESEAN ALEXANDRA RN RN Amended: Links added.
[2018-11-05] MEDS: MORPHINE SULFATE 2 MG/ML 1ML SYG IVP PRN (10:59)
[2018-11-05 12:00] VITALS: BP 133/71
--- NOTE | 2018-11-05 15:00 | NUR ---
cm note spoke to maurizio nurse at [facility], and states pt accepted just pending bed to be delivered. [facility] nurse and states that bed has already been delivered to [facility] and can transfer pt when ready. EMs arranged.
--- NOTE | 2018-11-05 15:28 | NUR ---
DISCHARGE SPOUSE, ALVARO HAYNES, GIVEN DISCHARGE INSTRUCTIONS AND EDUCATION. NO QUESTIONS OR CONCERNS VOICED AT THIS TIME. IVS X2 DISCONTINUED, CATHETER INTACT. NO SIGNS OF DISTRESS NOTED UPON DISCHARGE. EMS ACTIVATED. PENDING EMS TRANSFER TO [facility]. KARL FARRIS, NURSE AT [facility]. CALL LIGHT WITHIN REACH. WILL CONTINUE TO BE OBSERVED. Addendum: 11/05/18 at 1530 by DESEAN ALEXANDRA RN RN Amended: Links added.
== END 2018-11-05 18:17 | disposition hospice, home (50) | DRG 82 ==
LOC: EDH 17:41 → EDHIP 18:40 → 2CH 19:10 → 4CH 11-03 17:57
PROVIDERS: ADMIT Internal Medicine; ATTEND Internal Medicine
PROC: 02HV33Z Insertion of Infusion Device into Superior Vena Cava, Percutaneous Approach (ICD-10-PCS; 2018-10-20)
PROC: 30233K1 Transfusion of Nonautologous Frozen Plasma into Peripheral Vein, Percutaneous Approach (ICD-10-PCS; principal; 2018-10-22)
PROC: 5A09357 Assistance with Respiratory Ventilation, Less than 24 Consecutive Hours, Continuous Positive Airway Pressure (ICD-10-PCS; 2018-10-22)
DX: S06.369A Traumatic hemorrhage of cerebrum, unspecified, with loss of consciousness of unspecified duration, initial encounter (principal); J81.0 Acute pulmonary edema; G93.41 Metabolic encephalopathy; G93.6 Cerebral edema; E87.0 Hyperosmolality and hypernatremia; D68.9 Coagulation defect, unspecified; I48.1 Persistent atrial fibrillation; J81.1 Chronic pulmonary edema; N30.00 Acute cystitis without hematuria; I48.2 Chronic atrial fibrillation; D72.828 Other elevated white blood cell count; E78.00 Pure hypercholesterolemia, unspecified; E78.5 Hyperlipidemia, unspecified; E86.0 Dehydration; E87.8 Other disorders of electrolyte and fluid balance, not elsewhere classified; I27.20 Pulmonary hypertension, unspecified; Z66 Do not resuscitate; R56.9 Unspecified convulsions; W01.0XXA Fall on same level from slipping, tripping and stumbling without subsequent striking against object, initial encounter; Z51.5 Encounter for palliative care; Y93.89 Activity, other specified; Y92.89 Other specified places as the place of occurrence of the external cause; Y99.8 Other external cause status; Z79.01 Long term (current) use of anticoagulants; Z83.3 Family history of diabetes mellitus; Z82.49 Family history of ischemic heart disease and other diseases of the circulatory system; Z82.3 Family history of stroke; Z80.3 Family history of malignant neoplasm of breast
CPT/HCPCS: 36415; 36600; 70450; 71045; 71275; 72040; 73502; 80048; 80053; 80339; 81001; 81003; 82140; 82803; 82948; 83605; 83735; 83930; 84100; 84132; 84295; 84484; 85025; 85027; 85610; 85730; 86850; 86900; 86901; 86927; 87040; 87071; 87077; 87088; 87186; 87205; 93005; 93306; 93970; 94640; 94660; 94664; 97039; A4357; C1751; C1894; G0378; J0282; J1100; J1160; J1940; J1953; J2060; J2150; J2405; J2543; J3430; J3475; J3480; J3490; J7030; J7040; J7060; J7120; P9012; P9017; Q9967